=== PATIENT | male | born 1950 | race Caucasian/White ===

== ENCOUNTER 2024-08-13 11:21 | Day surgery (SDC) | payer MEDICARE, OTHER ==
[~2024-08-13] VITALS: Ht 180.3 cm; Wt 73.2 kg
[~2024-08-13 11:21] MED LIST: LR 1,000 ML IV SCH
[2024-08-13] MEDS ORDERED: fentaNYL 50 MCG/ML 5 ML VIAL ONE (12:15)
[2024-08-13] MEDS ORDERED: Rocuronium 50 MG/5 ML Multi-Dose VIAL ONE (12:15)
[2024-08-13] MEDS ORDERED: dexAMETHasone 10 MG/ML VIAL ONE (12:21)
[2024-08-13] MEDS ORDERED: Glycopyrrolate 0.2 MG/ML 1 ML VIAL ONE (12:21)
[2024-08-13] MEDS ORDERED: Ondansetron 4 MG/2 ML VIAL ONE (12:21)
[2024-08-13] MEDS ORDERED: Ketorolac 30 MG/ML VIAL ONE (12:21)
[2024-08-13] MEDS ORDERED: Lidocaine PF 2% (20 MG/ML) 5 ML VIAL ONE (12:21)
[2024-08-13] MEDS ORDERED: NS 10 ML IV ONE (12:21)
[2024-08-13] MEDS ORDERED: NORVASC 5MG5 MG/TAB PO (12:34)
[2024-08-13] MEDS ORDERED: MAGNESIUM GLUC500 MG PO (12:35)
[2024-08-13] MEDS ORDERED: MAGOX250 PO (12:36)
[2024-08-13] MEDS ORDERED: VITAMINC1000TA PO (12:36)
[2024-08-13 12:58] VITALS: BP 132/85; PULSE 62; TEMP 98.1
[2024-08-13] MEDS ORDERED: NORCO 325 MG-51 TAB PO (13:42)
[2024-08-13] MEDS ORDERED: Acetaminophen 325 MG TAB PO PRN (13:45)
[2024-08-13] MEDS ORDERED: Ondansetron 4 MG/2 ML VIAL IV PRN ×2 (13:45→15:00)
[2024-08-13] MEDS ORDERED: fentaNYL 50 MCG/ML 1 ML SYRINGE/VIAL [PACU/SDC ONLY] IV PRN (15:00)
[2024-08-13] MEDS ORDERED: hydrALAZINE 20 MG/ML 1 ML VIAL IV PRN (15:00)
[2024-08-13] MEDS ORDERED: HYDROmorphone 1 MG/1 ML SYRINGE [PACU/SDC ONLY] IV PRN (15:00)
[2024-08-13] MEDS ORDERED: droPERidol 2.5 MG/ML 2 ML VIAL IV PRN (15:00)
[2024-08-13 15:55] VITALS: BP 135/72; PULSE 73; TEMP 98.2
[2024-08-13 16:00] VITALS: BP 122/69; PULSE 66
[2024-08-13 16:15] VITALS: BP 113/61; PULSE 62
--- NOTE | 2024-08-13 17:39 | NUR ---
1555- PT BACK FROM PACU TO BAY 5 VIA CART. PT ALERT AND ORIENTED. MONITORS ON AND ALARMS SET. REPORT RECIEVED FROM RASHAUN MCLAUGHLIN. VSS. AT BEDSIDE. PT DOES NOT WANT ANYTHING TO EAT OR DRINK. CALL LIGHT WITHIN REACH. PT HAS NO OTHER NEEDS AT THIS TIME. 1615- PT RESTING IN BED. NO NEEDS AT THIS TIME. 1640- DISCHARGE INSTRUCITONS GIVEN TO PT WITH AT BEDSIDE. PT HAD SEVERAL QUESTIONS THAT WERE ANSWERED TO THE BEST OF MY ABILITY. 1705- PT TRANSFERRED OUT OF HOSPITAL VIA WHEELCHAIR TO OWN PRIVATE VEHICLE DRIVEN BY .
== END 2024-08-13 17:05 | disposition home or self-care (01) ==
LOC: SDCO 11:21
DX: K40.20 Bilateral inguinal hernia, without obstruction or gangrene, not specified as recurrent (principal); Z87.891 Personal history of nicotine dependence
CPT/HCPCS: C1781; J0690; J1100; J1885; J2405; J2704; J3010; J7120